=== PATIENT | female | born 1975 | race Caucasian/White ===

== ENCOUNTER 2021-02-11 11:55 | Emergency (ER) | payer OTHER ==
[~2021-02-11] VITALS: Ht 160 cm; Wt 55.8 kg
== END 2021-02-11 14:17 | disposition home or self-care (01) ==
LOC: ER 11:55
DX: B34.9 Viral infection, unspecified (principal)

== ENCOUNTER 2022-03-15 11:44 | Emergency (ER) | payer OTHER ==
[~2022-03-15] VITALS: Ht 160 cm; Wt 58.1 kg
[2022-03-15] MEDS ORDERED: SINGULAIR5 MG (12:23)
[2022-03-15] MEDS ORDERED: CELEBREX100 MG (12:23)
[2022-03-15] MEDS ORDERED: SYMBICORT 80/10.2 GM (12:24)
[2022-03-15] MEDS ORDERED: PROVENTIL HFA6.7 GM (12:24)
[2022-03-15] MEDS ORDERED: CIPRO500 MG PO (18:51)
== END 2022-03-15 19:05 | disposition home or self-care (01) ==
LOC: ER 11:44
DX: N39.0 Urinary tract infection, site not specified (principal); R07.0 Pain in throat